=== PATIENT | female | born 1995 | race Caucasian/White ===

== ENCOUNTER 2017-05-27 20:51 | Emergency (ER) | payer OTHER ==
--- NOTE | 2017-05-28 06:41 | EDM.PDOC ---
ED HPI GENERAL MEDICAL PROBLEM - General Chief Complaint: Lower Extremity Injury/Pain Stated Complaint: ankle pain Time Seen by Provider: 05/27/17 21:15 Source of Information: Reports: Patient History Limitations: Reports: No Limitations - History of Present Illness INITIAL COMMENTS - FREE TEXT/NARRATIVE: Pt. presents to ER with complaints of R ankle pain. Pt. states that she was jumping while playing vollyball and came down, inwardly rotating her R foot. She denies injury elsewhere. She states that she is having issues bearing weight and has pain in the lateral aspect of the ankle. Denies any crepitus. No numbness/tingling in the extremity. 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[employer]: Reports: Cold Therapy Right Ankle Pain Score (Numeric/FACES): 4 - Related Data Allergies Allergy/AdvReac Type Severity Reaction Status Date / Time No Known Allergies Allergy Verified 05/27/17 20:57 Past Medical History Psychiatric History: Reports: ADHD - Past Surgical History Other Musculoskeletal Surgeries/Procedures:: jaw surgery Social & Family History - Family History Family Medical History: Noncontributory - Tobacco Use Smoking Status *Q: Never Smoker - Caffeine Use Caffeine Use: Reports: Soda - Recreational Drug Use Recreational Drug Use: No Review of Systems - Review of Systems Review Of Systems: See Below Musculoskeletal: Reports: Leg Pain, Joint Pain, Joint Swelling, Other (R ankle) ED EXAM, GENERAL - Physical Exam Exam: See Below Exam Limited By: No Limitations General Appearance: Alert, WD/WN, No Apparent Distress Extremities: Joint Swelling, Leg Pain, Limited Range of Motion, Increased Warmth , Other (edema and tenderness to lateral aspect of R ankle) Course - Vital Signs Last Recorded V/S: Last Vital Signs Temp 36.4 C 05/27/17 20:53 Pulse 105 H 05/27/17 20:53 Resp 22 H 05/27/17 20:53 BP 132/78 05/27/17 20:53 Pulse Ox 98 05/27/17 20:53 - Orders/Labs/Meds Orders: Active Orders 24 hr Category Date Time Status Ankle Min 3V Rt [CR] Stat Exams 05/27/17 21:06 Taken - Radiology Interpretation Free Text/Narrative:: no fracture of dislocation noted Departure - Departure Time of Disposition: 22:00 Disposition: Home, Self-Care 01 Clinical Impression: Ankle sprain - Discharge Information Instructions: Ankle Sprain, [id number] Referrals: Rebecca Reyna PA [Primary Care Provider] - Forms: ED Department Discharge Additional Instructions: Use AMANDO wrap and splint for next 7 days. Ice ankle for 15 min every 1-3 hours. Crutches until you are able to bear weight. If not gradually improving, follow-up in clinic for repeat x-rays. - My Orders Last 24 Hours: My Active Orders 05/27/17 21:06 Ankle Min 3V Rt [CR] Stat - Assessment/Plan Last 24 Hours: My Active Orders 05/27/17 21:06 Ankle Min 3V Rt [CR] Stat
== END 2017-05-27 22:00 | disposition home or self-care (01) ==
LOC: SUPCPDRO 20:51 → VM.ED 20:51
DX: S93.401A Sprain of unspecified ligament of right ankle, initial encounter (principal); Y93.39 Activity, other involving climbing, rappelling and jumping off; Y93.68 Activity, volleyball (beach) (court)
CPT/HCPCS: 73610-RT; 99283